=== PATIENT | male | born 1970 | race Caucasian/White ===

== ENCOUNTER 2016-10-16 18:22 | Emergency (ER) | payer OTHER ==
[2016-10-16 18:37] VITALS: BP 145/89
--- NOTE | 2016-10-16 19:30 | UC ---
Elsa Austin Alfonso, scribed for Jorge L Johnson MD on 10/16/16 at 1905 . Lower Extremity/Ankle HPI - HPI Summary HPI Summary: This patient is a 46 year old M presenting to [facility] with a chief complaint of bilateral foot swelling since one week ago. The CC is described as progressively getting worse and throbbing. Pt rates the pain 6/10 in severity. Symptoms aggravated by ambulation and alleviated by nothing. Pt reports abd pain, nausea, dizziness, hematuria, and lightheadedness. Pt denies SOB and CP. Pt medications reviewed this visit. - History of Current Complaint Chief Complaint: UCGeneralIllness Stated Complaint: SWOLLEN FEET Time Seen by Provider: 10/16/16 18:51 Hx Obtained From: Patient Onset/Duration: Sudden Onset, Lasting Weeks - 1, Worse Since Severity Initially: Mild Severity Currently: Moderate Pain Intensity: 6 Pain Scale Used: 0-10 Numeric Aggravating Factor(s): Ambulation Alleviating Factor(s): Other Able to Bear Weight: No - Wheel chair - Allergies/Home Medications Allergies/Adverse Reactions: Allergies Allergy/AdvReac Type Severity Reaction Status Date / Time Red Dye Allergy Hives Verified 10/16/16 18:28 Home Medications: Home Medications Ibuprofen TAB* [Motrin TAB* 800 MG] 800 mg PO TID 10/16/16 [History Confirmed ] Lisinopril TAB* [Prinivil TAB 10 MG*] 10 mg PO DAILY 10/16/16 [History Confirmed 10/16/16] Loratadine [Claritin 10 MG CAP] 10 mg PO DAILY 10/16/16 [History Confirmed 10/16] Omeprazole CAP* [Prilosec CAP* 20 MG] 20 mg PO DAILY 10/16/16 [History Confirmed 10/16/16] Simvastatin TAB(NF) [Zocor 20 MG (NF)] 20 mg PO DAILY 10/16/16 [History Confirmed 10/16/16] Topiramate [Topamax 100 mg tab] 100 mg PO 10/16/16 [History Confirmed 10/16/16] PMH/Surg Hx/FS Hx/Imm Hx - Surgical History Surgical History: None - Family History Known Family History: Positive: Renal Disease - Social History Alcohol Use: None Substance Use Type: None Smoking Status (MU): Former Smoker Review of Systems Gastrointestinal: Abdominal Pain, Nausea Genitourinary: Other - Positive hematuria Musculoskeletal: Other: - Positive bilateral foot swelling Neurological: Other - Positive dizziness and lightheadedness All Other Systems Reviewed And Are Negative: Yes Physical Exam Triage Information Reviewed: Yes Appearance: Well-Appearing, No Pain Distress Vital Signs: Initial Vital Signs Temp 97.7 F 10/16/16 18:30 Pulse 87 10/16/16 18:30 Resp 20 10/16/16 18:30 BP 145/89 10/16/16 18:30 Pulse Ox 98 10/16/16 18:30 Vital Signs Reviewed: Yes Eyes: Positive: Other: - EOMI, FAREED ENT: Positive: Normal ENT inspection Neck: Positive: Supple, Nontender Respiratory: Positive: Lungs clear, Normal breath sounds Cardiovascular: Positive: RRR Abdomen Description: Positive: Nontender, Soft Bowel Sounds: Positive: Present Musculoskeletal: Positive: Other: - Bilateral pedal edema. Bilateral calf tenderness to palpation. Right great toe erythematous with no drainage. Neurological: Positive: Alert Psychological: Positive: Age Appropriate Behavior Skin Exam: Normal Lower Extremity Course/Dx - Course Course Of Treatment: NO U/S AT CLINIC TO EVAL FOR DVT. LABS IN CLINIC WILL NOT BE AVAILABLE UNTIL TOMORROW TO EVALUATE FOR KIDNEY FUNCTION/CHF. DISCUSSED THIS WITH PATIENT/. [facility]CL[facility]ES AMBULANCE. AMA/ED/POV. - Differential Dx/Diagnosis Provider Diagnoses: BILATERAL PEDAL EDEMA AND CALF TENDERNESS. RIGHT GREAT TOE CELLULITIS. Discharge - Discharge Plan Condition: Stable Disposition: AGAINST MEDICAL ADVICE Referrals: Travis Miller MD [Primary Care Provider] - The documentation as recorded by the [facility] accurately reflects the service I personally performed and the decisions made by me, Jorge L Johnson MD.
== END 2016-10-16 19:30 | disposition left against medical advice (07) ==
LOC: UCEAST 18:22
DX: R60.9 Edema, unspecified (principal); M79.662 Pain in left lower leg; L03.031 Cellulitis of right toe
CPT/HCPCS: 99212; G0463

== ENCOUNTER 2016-10-16 19:56 | Emergency (ER) | payer OTHER ==
--- NOTE | 2016-10-16 22:59 | ED ---
Latisha Austin Salem, scribed for Rogelio Bragg MD on 10/16/16 at 2135 . Lower Extremity - HPI Summary HPI Summary: Patient is a 46 y/o M who presents to the ED with edema of lower extremities for the past 2-3 days. Pt states that he saw his PCP (Dr. Centeno) and told that he does not have DM and that he should try to stay off his feet. He was also seen at the urgent care, but sent here for further work up. Pt states that he is taking Topamax for symptom. Denies PMHx of DVT. - History of Current Complaint Chief Complaint: EDExtremityLower Stated Complaint: SWELLING OF FEET/LEGS-SENT FROM [facility] Time Seen by Provider: 10/16/16 21:25 Hx Obtained From: Patient, Family/[employer] Onset/Duration: Days Severity Initially: Moderate Severity Currently: Moderate Pain Intensity: 2 Pain Scale Used: 0-10 Numeric Timing: Constant, Lasting Days Location: Is Diffuse Associated Signs And Symptoms: Positive: Swelling Aggravating Factor(s): Nothing Alleviating Factor(s): Nothing - Allergies/Home Medications Allergies/Adverse Reactions: Allergies Allergy/AdvReac Type Severity Reaction Status Date / Time Bee Venom Allergy Anaphylatic Verified 10/16/16 20:11 Shock Red Dye Allergy Hives Verified 10/16/16 18:28 PMH/Surg Hx/FS Hx/Imm Hx Infectious Disease History: Denies: Traveled Outside the [place] in Last 30 Days - Family History Known Family History: Positive: Renal Disease - Social History Alcohol Use: None Substance Use Type: Reports: None Smoking Status (MU): Former Smoker Review of Systems Negative: Fever Positive: Edema Positive: Other - Overcut over-hanging nail to left toe. All Other Systems Reviewed And Are Negative: Yes Physical Exam Triage Information Reviewed: Yes Vital Signs On Initial Exam: Initial Vitals Temp Pulse Resp BP Pulse Ox 97.0 F 87 16 142/85 95 10/16/16 20:05 10/16/16 20:05 10/16/16 20:05 10/16/16 20:05 10/16/16 20:05 Vital Signs Reviewed: Yes Appearance: Positive: No Pain Distress, Obese Skin: Positive: Warm Head/Face: Positive: Normal Head/Face Inspection Eyes: Positive: FAREED ENT: Positive: Hearing grossly normal Neck: Positive: Supple Respiratory/Lung Sounds: Positive: Breath Sounds Present Cardiovascular: Positive: RRR Abdomen Description: Positive: Nontender, Soft Bowel Sounds: Positive: Present Musculoskeletal: Positive: Edema Left, Edema Right - 3+ Neurological: Positive: Sensory/Motor Intact, Alert, Oriented to Person Place, Time, Normal Gait Psychiatric: Positive: Affect/Mood Appropriate Diagnostics - Vital Signs Vital Signs Temp Pulse Resp BP Pulse Ox 10/16/16 20:05 97.0 F 87 16 142/85 95 - Laboratory Result Diagrams: 10/16/16 23:15 10/16/16 23:15 Lab Statement: Any lab studies that have been ordered have been reviewed, and results considered in the medical decision making process. - Ultrasound No standard instances Ultrasound Interpretation Completed By: Radiologist - No evidence for DVT bilateral lower extremities. Re-Evaluation - Re-Evaluation First Eval Re-Evaluation Time: 00:29 Comment: Reviewed results. Lower Extremity Course/Dx - Course Course Of Treatment: 46 y/o M presents with edema of lower extremities for the past 2-3 days. Pt states that he is taking Topamax for symptom. Denies PMHx of DVT. US shows, per radiology, No evidence for DVT bilateral lower extremities. Pt will be DC with abx to follow up. - Diagnoses Provider Diagnoses: Edema Discharge - Discharge Plan Condition: Stable Disposition: HOME Prescriptions: Cephalexin CAP* [Keflex CAP*] 250 mg PO QID #30 cap Patient Education Materials: Leg Edema (ED) Referrals: Travis Miller MD [Primary Care Provider] - Additional Instructions: Please follow up with your primary care provider. The documentation as recorded by the [facility] accurately reflects the service I personally performed and the decisions made by , Rogelio Bragg MD.
[2016-10-16 23:29] LABS: Hematocrit 47 % (42-52); Hemoglobin 15.6 g/dl (14.0-18.0); Mean Corpuscular HGB Conc 33 g/dl (31-36); Mean Corpuscular Hemoglobin 32 pg (27-31); Mean Corpuscular Volume 95 fL (80-94); Mean Platelet Volume 11 um3 (7.4-10.4); Red Blood Count 4.93 10^6/ul (4.0-5.4); Red Cell Distribution Width 13 % (10.5-15); White Blood Count 5.9 10^3/ul (3.5-10.8)
[2016-10-16 23:44] LABS: Albumin 3.8 g/dL (3.2-5.2); BUN/Creatinine Ratio 10.6 (8-20); EGFR African American 124.3 (>60); EGFR Non-African American 96.6 (>60); Globulin 2.6 g/dL (2-4); Total Bilirubin 0.7 mg/dL (0.2-1.0); Total Protein 6.4 g/dL (6.4-8.9)
[2016-10-17] MEDS ORDERED: Cephalexin CAP* 250 MG PO ONE (00:29)
[2016-10-17 00:40] VITALS: BP 138/68
--- NOTE | 2016-10-17 08:51 | RAD ---
Indication: Bilateral leg edema. Duplex Doppler sonography of the deep venous system of both lower extremities was performed. Bilaterally the common femoral veins, proximal greater saphenous veins, proximal deep femoral veins, femoral veins, popliteal veins, posterior tibial veins and peroneal veins appear patent and compressible. IMPRESSION: NO EVIDENCE OF DEEP VENOUS THROMBOSIS OF EITHER LOWER EXTREMITY IS PRESENT.
== END 2016-10-17 00:39 | disposition home or self-care (01) ==
LOC: ED 19:56
DX: R60.0 Localized edema (principal); E66.9 Obesity, unspecified; Z87.891 Personal history of nicotine dependence
CPT/HCPCS: 36415; 80053; 83880; 85025; 93970; 99282; A9270-GY

== ENCOUNTER 2019-03-30 10:05 | Emergency (ER) | payer MEDICAID, OTHER ==
[2019-03-30 10:25] VITALS: BP 144/89
--- NOTE | 2019-03-30 10:41 | UC ---
Abdominal Pain Male HPI - HPI Summary HPI Summary: 48 yo male presents with diarrhea. He tells me that last night he developed some generalized abdominal discomfort. Around 2300 and 0230 he vomited. Since 0230 has had 3-4 episodes of loose stools. This morning he feels better and has not vomited or had any more loose stools. He does feel generally tired and has some cramping lower abdominal discomfort. He had tea this morning, but has not eaten "in case bloodwork was needed today". He is diabetic and checked his sugar this morning and was "normal" - unsure of the number. Did not get a flu shot this year. Denies fever, chills, recent illness, SOB, chest pain, back pain , dysuria, blood in stool. - History of Current Complaint Chief Complaint: EDAbdPain Stated Complaint: DIARRHEA ABD PAIN Time Seen by Provider: 03/30/19 10:41 Hx Obtained From: Patient Onset/Duration: Sudden Onset Severity Initially: Mild Severity Currently: Mild Pain Intensity: 3 Pain Scale Used: 0-10 Numeric - Allergies/Home Medications Allergies/Adverse Reactions: Allergies Allergy/AdvReac Type Severity Reaction Status Date / Time bee venom protein (honey bee) Allergy anaph Verified 03/30/19 10:27 red dye Allergy Hives Verified 03/30/19 10:27 tide Allergy Hives Uncoded 03/30/19 10:27 PMH/Surg Hx/FS Hx/Imm Hx Endocrine History: Diabetes, Dyslipidemia GI/ History: Gastroesophageal Reflux - Surgical History Surgical History: None - Family History Known Family History: Positive: Renal Disease - Social History Occupation: Employed Full-time Lives: With Family Alcohol Use: None Substance Use Type: None Smoking Status (MU): Never Smoked Tobacco Review of Systems All Other Systems Reviewed And Are Negative: No Constitutional: Positive: Negative Skin: Positive: Negative Eyes: Positive: Negative ENT: Positive: Negative Respiratory: Positive: Negative Cardiovascular: Positive: Negative Gastrointestinal: Positive: Abdominal Pain, Vomiting, Diarrhea Genitourinary: Positive: Negative Neurological: Positive: Negative Psychological: Positive: Negative Physical Exam - Summary Physical Exam Summary: GENERAL: NAD. WDWN. No pain distress. SKIN: No rashes, sores, lesions, or open wounds. NECK: Supple. Nontender. No lymphadenopathy. CHEST: CTAB. No r/r/w. No accessory muscle use. Breathing comfortably and in no distress. CV: RRR. Pulses intact. Cap refill <2seconds ABDOMEN: Soft. NTTP. No distention or guarding. No organomegaly. No CVA tenderness. Bowel sounds present NEURO: Alert. PSYCH: Age appropriate behavior. Triage Information Reviewed: Yes Vital Signs: Initial Vital Signs Temp 98.5 F 03/30/19 10:23 Pulse 67 03/30/19 10:23 Resp 16 03/30/19 10:23 BP 144/89 03/30/19 10:23 Pulse Ox 100 03/30/19 10:23 Laboratory Tests 03/30/19 03/30/19 10:52 10:54 POC Glucose (mg/dL) 133 H Influenza A (Rapid) Negative Influenza B (Rapid) Negative Vital Signs Reviewed: Yes Abd Pain Male Course/Dx - Course Course Of Treatment: Suspect viral gastroenteritis. Pt has not had anymore vomiting or loose stools in several hours and is tolerating po tea/liquid at this time. POC glucose 133 and POC flu negative. Will draw labwork at this request for CBC and CMP. Advised to try a BRAT diet and advance as tolerated. Is requesting a work note today that will be provided to him. - Differential Dx/Clinical Impression Provider Diagnosis: Gastroenteritis Discharge ED - Sign-Out/Discharge Documenting (check all that apply): Patient Departure All imaging exams completed and their final reports reviewed: No Studies - Discharge Plan Condition: Stable Disposition: HOME Patient Education Materials: Gastroenteritis (ED) Forms: *Gen. Provider Communication, *Work Release Referrals: Travis Miller MD [Primary Care Provider] - Additional Instructions: If you develop a fever, shortness of breath, chest pain, new or worsening symptoms - please call your PCP or go to the ED immediately. Your blood pressure was high at todays visit. Please see your primary provider within 4 weeks for recheck and re-evaluation. Labwork pending. Try a bland diet consisting of bananas, rice, applesauce, and toast for the next 24 hours. Advance your diet as tolerated. - Billing Disposition and Condition Condition: STABLE Disposition: Home
[2019-03-30 11:05] LABS: Influenza A Molecular NEGATIVE (Negative); Influenza B Molecular NEGATIVE (Negative)
[2019-03-30 16:02] LABS: ABS Eosinophils 0.2 10^3/ul (0-0.6); ABS Lymphocytes 1.2 10^3/ul (1.0-4.8); ABS Monocytes 0.4 10^3/ul (0-0.8); ABS Neutrophils 4.8 10^3/ul (1.5-7.7); Eosinophil % 3.3 %; Hematocrit 47 % (42-52); Hemoglobin 16.1 g/dL (14.0-18.0); Lymphocyte % 17.9 %; Mean Corpuscular HGB Conc 35 g/dL (31-36); Mean Corpuscular Hemoglobin 34 pg (27-31); Mean Corpuscular Volume 97 fL (80-94); Mean Platelet Volume 10.2 fL (7.4-10.4); Platelet Count 171 10^3/uL (150-450); Red Cell Distribution Width 12 % (10-15); White Blood Count 6.7 10^3/uL (3.5-10.8)
[2019-03-30 16:13] LABS: Albumin 4.1 g/dL (3.2-5.2); Calcium 8.8 mg/dL (8.6-10.3); Potassium 4.1 mmol/L (3.5-5.0); Total Bilirubin 0.8 mg/dL (0.2-1.0)
[2019-03-30 16:19] LABS: Albumin/Globulin Ratio 2.1 (1-3); BUN/Creatinine Ratio 17.9 (8-20); EGFR Non-African American 105.8 (>60); Total Protein 6.1 g/dL (6.4-8.9)
== END 2019-03-30 11:27 | disposition home or self-care (01) ==
LOC: UCEAST 10:05
DX: K52.9 Noninfective gastroenteritis and colitis, unspecified (principal); E11.9 Type 2 diabetes mellitus without complications; Z91.030 Bee allergy status; Z91.09 Other allergy status, other than to drugs and biological substances; Z91.041 Radiographic dye allergy status
CPT/HCPCS: 36415; 80053; 85025; 99211; G0463